=== PATIENT | female | born 1985 | race Two or more races ===

== ENCOUNTER 2016-12-08 06:05 | Day surgery (SDC) | payer OTHER ==
[2016-12-06 12:35] VITALS: BMI 26.6
--- NOTE | 2016-12-07 09:59 | HP ---
History & Physical Update - History History: No Change - Physical Physical: No Change - Assessment Assessment: No Change - Plan Plan: No Change
[2016-12-08] MEDS ORDERED: PROPOFOL 20 ML ONE (08:53)
[2016-12-08] MEDS ORDERED: MIDAZOLAM HCL 2 MG/2 ML SINGLE DOSE VIAL ONE (08:53)
[2016-12-08] MEDS ORDERED: LIDOCAINE HCL/PF 2% SDV 5ML VIAL ONE (08:55)
[2016-12-08] MEDS ORDERED: SCOPOLAMINE HYDROBROMIDE 1 PATCH PATCH.TD72 ONE (08:59)
[2016-12-08] MEDS ORDERED: ceFAZolin SODIUM 1 GM VIAL ONE (09:26)
[2016-12-08] MEDS ORDERED: ceFAZolin SODIUM 1 GM VIAL IVPB ONE (09:27)
[2016-12-08] MEDS ORDERED: KETOROLAC TROMETHAMINE 30 MG/1 ML VIAL ONE (09:54)
[2016-12-08] MEDS ORDERED: oxyCODONE HCL 5 MG TABLET PO PRN (10:13)
[2016-12-08] MEDS ORDERED: ONDANSETRON 4 MG/2 ML VIAL IVPUSH PRN (10:13)
[2016-12-08] MEDS ORDERED: LACTATED RINGERS SOLUTION 1,000 ML IV SCH (10:15)
[2016-12-08] MEDS ORDERED: ACETAMINOPHEN 325 MG TABLET (FP) PO PRN (11:19)
[2016-12-08] MEDS ORDERED: IBUPROFEN 400 MG TABLET (FP) PO PRN (11:19)
[2016-12-08 14:23] VITALS: TEMP 97.6
[2016-12-08 14:44] VITALS: BP 106/52; PULSE 76
--- NOTE | 2016-12-11 12:39 | PATH ---
Surgical Pathology Report Patient Name: KAREN LOPEZ [facility]. Rec. #: [id number] /Age/Gender: 1985 (Age: 30) / F Account: [id number] Location: [facility] SURGICAL Taken: 12/08/2016 Received: 12/08/2016 Reported: 12/11/2016 Physicians: Deja Craig M.D. Specimen(s) Received A: UTERINE CONTENTS B: UTERINE POLYPS Clinical History Menorrhagia/submucosal myoma, endometrial polyps Final Diagnosis A. UTERINE CONTENTS: POLYPOID AND NON-POLYPOID FRAGMENTS OF SECRETORY ENDOMETRIUM. FRAGMENTS OF BENIGN SMOOTH MUSCLE. B. UTERINE POLYP: POLYPOID FRAGMENTS OF SECRETORY ENDOMETRIUM. FRAGMENTS OF BENIGN SMOOTH MUSCLE. Electronically Signed Jonine Shelton M.D. Gross Description A. Received in formalin, labeled "uterine contents" is 4.5 x 4.5 x 1 cm in aggregate dimension multiple fragments of wong-red tissue admixed with blood. Submitted entirely in five cassettes. B. Received in formalin, labeled "uterine polyp" and multiple fragments of wong-pink tissue ranging from 0.5-1.2 cm in greatest dimension. Submitted entirely in one cassette. AF/12/08/2016 final/12/08/2016
--- NOTE | 2016-12-28 16:10 | OP ---
DATE OF OPERATION: 12/08/2016 PREOPERATIVE DIAGNOSIS: Submucosal myoma, endometrial polyps. POSTOPERATIVE DIAGNOSIS: Submucosal myoma, endometrial polyps. OPERATION: Hysteroscopic myomectomy and suction dilation and curettage. SURGEON: Deja Craig M.D. ANESTHESIA: General. PROCEDURE: Patient was taken to the operating room, placed in dorsal lithotomy position, prepped and draped in the usual sterile fashion. A speculum was placed in the vagina. Anterior lip of the cervix was grasped with single-tooth tenaculum. The cervix was then dilated to accommodate the operative hysteroscope. Operative hysteroscope was inserted and a large submucous myoma was noted. Cutting and cautery of the endometrial myoma and polyp was done. The specimen was then submitted to Pathology. Large amounts of tissue were removed and after cautery had been done, suction dilation and curettage was then performed. Hemostasis was achieved. All instruments were then removed. Patient tolerated the procedure well. ESTIMATED BLOOD LOSS: 20 mL. DEJA CRAIG M.D. [id number]
== END 2016-12-08 14:30 | disposition home or self-care (01) ==
LOC: JASU-SURG 06:05
PROVIDERS: ATTEND Obstetrics & Gynecology
PROC: 0UDB8ZX Extraction of Endometrium, Via Natural or Artificial Opening Endoscopic, Diagnostic (ICD-10-PCS; principal; 2016-12-08 09:00)
PROC: 0UB98ZZ Excision of Uterus, Via Natural or Artificial Opening Endoscopic (ICD-10-PCS; 2016-12-08 09:00)
DX: D25.0 Submucous leiomyoma of uterus (principal); N84.0 Polyp of corpus uteri
CPT/HCPCS: 88305-TC; 94760

== ENCOUNTER 2018-11-21 08:25 | Inpatient (IN) | payer OTHER ==
[2018-11-21] MEDS ORDERED: ONDANSETRON 4 MG/2 ML VIAL IVPUSH PRN (08:33)
[2018-11-21 09:20] VITALS: BMI 33.6
[2018-11-21] MEDS ORDERED: TUBERCULIN PPD 5 TU/0.1ML SYRINGE (IN PATIENT USE ONLY) ID ONE (09:45)
[2018-11-21] MEDS ORDERED: ELECTROLYTE-148 SOLN 1,000 ML IV SCH ×3 (09:45→10:45)
[2018-11-21] MEDS ORDERED: CITRIC ACID/SODIUM CITRATE 30 ML UNIT-DOSE CUP PO ONE (09:45)
[2018-11-21] MEDS ORDERED: OXYTOCIN 20 UNITS in 0.9% NS 20 UNIT/1,000 ML INFUS.BAG IV ONE ×2 (10:05→12:48)
[2018-11-21] MEDS ORDERED: morphine SULFATE/Preservative Free 0.5 MG/ML (1cc Syringe) ONE (10:07)
--- NOTE | 2018-11-21 10:13 | HP ---
Past Medical History - Primary Care Physician PCP:: Deja Craig - Admission Chief Complaint: Previous Section. Previous myomectomy. 38 weeks History of Present Illness: 32 yo EDC EGA 38 weeks with previous myomectomy and previous Section for repeat CS +AFM No bleeding no pain no GARZA History Source: Patient - Past Medical History ...: 3 ...Para: 1 ...Term: 1 ...: 0 ...Spon : 0 ...Induced : 1 ...Multiple Gestation: 0 ...LMP: 02/24/18 ... Weeks Gestation by Dates: 38.4 ...EDC by Dates: 12/01/18 - Past Surgical History Past Surgical History: Yes: Hx Myomectomy: Yes Hx Transabdominal Cerclage: No Additional Surgical History: myomectomy - Smoking History Smoking history: Never smoked Have you smoked in the past 12 months: No If you are a former smoker, when did you quit?: 5YRS AGO - Alcohol/Substance Use Hx Alcohol Use: No History of Substance Use: reports: None - Social History Usual Living Arrangement: Yes: With Spouse History of Recent Travel: No Home Medications - Allergies Allergies/Adverse Reactions: Allergies Allergy/AdvReac Type Severity Reaction Status Date / Time azithromycin [From Zithromax] Allergy Intermediate Rash Verified 11/21/18 14:22 - Home Medications Home Medications: Ambulatory Orders Tablet 1 tab PO DAILY 11/21/18 Review of Systems - Review of Systems Constitutional: reports: No Symptoms Eyes: reports: No Symptoms HENT: reports: No Symptoms Neck: reports: No Symptoms Cardiovascular: reports: No Symptoms Respiratory: reports: No Symptoms Gastrointestinal: reports: No Symptoms Genitourinary: reports: No Symptoms Breasts: reports: No Symptoms Reported Musculoskeletal: reports: No Symptoms Integumentary: reports: No Symptoms Neurological: reports: No Symptoms Endocrine: reports: No Symptoms Hematology/Lymphatic: reports: No Symptoms Psychiatric: reports: No Symptoms Physical Exam - Maternity Vital Signs: Vital Signs Temperature 98.0 F 11/21/18 08:25 Pulse Rate 82 11/21/18 08:25 Respiratory Rate 17 11/21/18 08:25 Blood Pressure 121/64 11/21/18 08:25 O2 Sat by Pulse Oximetry (%) Constitutional: Yes: Well Nourished, No Distress Lungs: Clear to auscultation Breast(s): Yes: WNL - Abdominal Exam/OB Fundal Height: 39 Number of Fetuses: Single Presentation: Vertex Contractions: No Category: I - Vaginal Exam/OB Vaginal Bleediing: No Speculum Exam: No Amniotic Membrane Status: Intact Presentation: Vertex/Position - Physical Exam Edema: No Psychiatric: Yes: WNL, Alert, Oriented Hemorrhage Risk Assessment - Risk Factors Risk Score: 1 Risk Level: Medium Risk Problem List - Problems (1) H/O myomectomy Code(s): Z98.890 - OTHER SPECIFIED POSTPROCEDURAL STATES (2) Previous delivery affecting , antepartum Code(s): O34.219 - MATERNAL CARE FOR UNSP TYPE SCAR FROM PREVIOUS DEL (3) 38 weeks gestation of Code(s): Z3A.38 - 38 WEEKS GESTATION OF Assessment/Plan IUP at 38 week previous Section x1 Previous myomectomy Cat 1 Plan repeat Section
[2018-11-21] MEDS ORDERED: ePHEDrine SULFATE 50 MG/1 ML AMPULE ONE (10:14)
--- NOTE | 2018-11-21 10:16 | OP ---
Operative Note - Note: Operative Date: 11/21/18 Pre-Operative Diagnosis: Previous Myomectomy. Previous Section. IUP @ 38 week Operation: Repeat Low transverse Section Findings: Live female in OA position nuchal x 1 Post-Operative Diagnosis: Same as Pre-op Surgeon: Deja Craig Story Teller: Juliann Pace Anesthesiologist/TAX STAFF ACCOUNTANT: Juliann Pace Specimens Removed: placenta Estimated Blood Loss (mls): 500 Operative Report Dictated: Yes
[2018-11-21] MEDS ORDERED: METHYLERGONOVINE MALEATE 0.2 MG/1 ML AMP IM PRN (10:17)
[2018-11-21] MEDS ORDERED: PHENYLEPHRINE HCL 10 MG/1 ML SINGLE DOSE VIAL ONE (10:17)
[2018-11-21] MEDS ORDERED: ceFAZolin SODIUM 1 GM VIAL ONE (10:18)
[2018-11-21] MEDS ORDERED: KETOROLAC TROMETHAMINE 30 MG/1 ML VIAL ONE (10:19)
[2018-11-21 11:18] LABS: VENOUS PC02 42.7 mmHg (38-52); VENOUS PH 7.37 (7.32-7.42)
[2018-11-21 11:19] LABS: VENOUS PO2 23.3 mmHg (28-48)
[2018-11-21 11:20] LABS: ARTERIAL BLOOD GAS PCO2 59.6 mmHg (35-45); ARTERIAL BLOOD GAS pH 7.26 (7.35-7.45)
[2018-11-21 11:22] LABS: ARTERIAL BLD GAS O2 SATURATION 29.7 % (90-98.9)
--- NOTE | 2018-11-21 11:45 | SURG ---
Surgery Manager Sound Note Manager Sound: Juliann Pace PA-C (Suzy) Date of Service: 11/21/18 Diagnosis: Previous Myomectomy. Previous Section. IUP @ 38 week Procedure: Repeat Low transverse Section I was present for the entirety of the operative procedure. For further detail, please refer to operative report. Visit type - Case Type Case Type: Scheduled - Emergency Emergency Visit: No - New patient This patient is new to me today: Yes Date on this admission: 11/21/18 - Critical Care Critical Care patient: No
[2018-11-21] MEDS ORDERED: ACETAMINOPHEN INJECTION 100 ML IVPB ONE (12:38)
[2018-11-21] MEDS: OXYTOCIN 20 UNITS in 0.9% NS 20 UNIT/1,000 ML INFUS.BAG IV SCH ×2 (12:58→19:32)
--- NOTE | 2018-11-21 13:03 | OP ---
DATE OF OPERATION: 11/21/2018 PREOPERATIVE DIAGNOSES: Previous myomectomy, previous section, intrauterine at 38 weeks. OPERATION: Repeat section. PREOPERATIVE DIAGNOSES: Previous myomectomy, previous section, intrauterine at 38 weeks, and live female . SURGEON: Argenis Craig MD CHIEF GUARD: COSTA Pace ANESTHESIA: Spinal. ANESTHESIOLOGIST: Jeffrey Padgett MD FINDINGS: Live female delivered in OP position. PROCEDURE: The patient was taken to the operating room, placed in supine position, prepped and draped in usual sterile fashion. A timeout was performed in accordance with hospital regulation. A Pfannenstiel skin incision was made through the patient's previous scar. Cautery was then used to go through layers of abdominal wall to the level of the fascia. Fascia was cut in the midline and cautery was then used to open the fascia in smiling fashion. Kochers were then used to bluntly and sharply dissect the rectus muscle. The fascia was split in the midline. Peritoneal cavity was then entered and carried upward and downward. Bladder retractor was then placed. Vesicouterine reflection was then entered, and bladder was bluntly dissected out of the operative field. Bladder retractor was then replaced. A scalpel was then used to make a low transverse uterine incision. The incision was carried upward using the bandage scissors. A live female was delivered in OP position. Nose and mouth suctions were performed. Shoulders were delivered without difficulty. Cord was clamped and cut. Cord blood obtained. Cord pH obtained. Cord blood sampling obtained. DeLee clamping done. Infant was hand to the acetaldehyde converter operator. Placenta was manually extracted from the uterus. The uterus was exteriorized and cleaned with clean lap pads. Uterine incision was then closed using 0 Biosyn suture, first layer continuous interlocking, second layer imbricating the first layer. Some omentum was seen attached to the uterus. Some enterolysis was done and omentum was removed. Cautery of the area was then done. INTERCEED was placed over that area. Tubes and ovaries were noted to be normal. Uterus interiorized. Abdominal cavity cleaned with clean lap pad. A peritoneal cyst was then seen and peritoneal cystectomy was then performed and submitted to Pathology. Peritoneum closed using 0 Biosyn suture in continuous stitch. Muscles approximated in midline using 0 Biosyn suture. Fascia was then closed using 0 Vicryl suture in 2 parts. Subcutaneous was then approximated using 0 Biosyn sutures in 3 parts. Skin was then closed using 3-0 Vicryl in subcuticular fashion. Wound was washed and dressed. Patient tolerated the procedure well. Estimated blood loss was 500 mL. ARGENIS CRAIG M.D. [id number]
[2018-11-21] MEDS ORDERED: ACETAMINOPHEN 1000 MG/100 ML VIAL (NON FORMULARY) IVPB ONE (13:04)
[2018-11-21] MEDS: IBUPROFEN 800 MG/8 ML IJ IVPB PRN (19:42)
[2018-11-22] MEDS: IBUPROFEN 800 MG/8 ML IJ IVPB PRN (03:21)
[2018-11-22 07:08] LABS: BASO % 0.3 % (0-2.0); EOS % 0.7 % (0-4.5); HEMATOCRIT 31.3 % (32.4-45.2); HEMOGLOBIN 10.6 GM/dL (10.7-15.3); LYMPH % 10.4 % (8-40); MCH 29.1 pg (25.7-33.7); MEAN CELL VOLUME 85.7 fl (80-96); MEAN PLT VOLUME 10.1 fl (7.5-11.1); MONO % 7.4 % (3.8-10.2); NEUT % 81.2 % (42.8-82.8); PLATELET COUNT 169 K/MM3 (134-434); RBC 3.65 M/mm3 (3.60-5.2); RDW 15.5 % (11.6-15.6); WHITE BLOOD COUNT 12.6 K/mm3 (4.0-10.0)
--- NOTE | 2018-11-22 08:53 | PN ---
Progress Note (short form) - Note Progress Note: S/P C Section under spinal anesthesia with duramorph uneventful.Patient stable and has little pain for which she is on medication.No any anesthesia related problem.Patient Dc from the anesthesia care.
--- NOTE | 2018-11-22 09:16 | PN ---
Post Progress Note - Subjective Subjective: Pt doing well, no complaints. Tolerating clears. Ambulating, voiding, pain controlled. No complaints. Type of Delivery: Repeat C/S Vital Signs: Vital Signs Temperature 98 F 11/22/18 05:00 Pulse Rate 88 11/22/18 05:00 Respiratory Rate 18 11/22/18 06:00 Blood Pressure 96/53 L 11/22/18 05:00 O2 Sat by Pulse Oximetry (%) 99 11/21/18 12:15 Uterus: Yes: Fundus Firm Incision: Yes: Dressing dry and intact Abdomen/GI: Yes: Abdomen soft Lochia, amount: Small Extremities: Yes: Calves non-tender. No: Edema Perineum: Yes: Intact Activity: Ambulating - Labs Labs: CBC WBC 12.6 K/mm3 (4.0-10.0) H 11/22/18 06:36 RBC 3.65 M/mm3 (3.60-5.2) 11/22/18 06:36 Hgb 10.6 GM/dL (10.7-15.3) L 11/22/18 06:36 Hct 31.3 % (32.4-45.2) L 11/22/18 06:36 MCV 85.7 fl (80-96) 11/22/18 06:36 MCH 29.1 pg (25.7-33.7) 11/22/18 06:36 MCHC 34.0 g/dl (32.0-36.0) 11/22/18 06:36 RDW 15.5 % (11.6-15.6) 11/22/18 06:36 Plt Count 169 K/MM3 (134-434) 11/22/18 06:36 MPV 10.1 fl (7.5-11.1) 11/22/18 06:36 Absolute Neuts (auto) 10.2 K/mm3 (1.5-8.0) H 11/22/18 06:36 Neutrophils % 81.2 % (42.8-82.8) 11/22/18 06:36 Lymphocytes % 10.4 % (8-40) D 11/22/18 06:36 Monocytes % 7.4 % (3.8-10.2) 11/22/18 06:36 Eosinophils % 0.7 % (0-4.5) 11/22/18 06:36 Basophils % 0.3 % (0-2.0) 11/22/18 06:36 Nucleated RBC % 0 % (0-0) 11/22/18 06:36 Problem List - Problems (1) delivery delivered Code(s): O82 - ENCOUNTER FOR DELIVERY WITHOUT INDICATION Assessment/Plan pod #1 s/p c section ambulation advance diet s/p void encourage ambulation
[2018-11-22] MEDS ORDERED: DIPHTH,PERTUSS(ACELL),TET 0.5 ML DISP.SYRIN IM ONE (10:00)
[2018-11-22] MEDS: oxyCODONE HCL 5 MG TABLET PO PRN ×2 (10:10→21:59)
[2018-11-22] MEDS: PRENATAL VITAMINS W/ FOLIC ACID TABLET (FP) PO SCH (10:10)
[2018-11-22] MEDS: IBUPROFEN 600 MG TABLET (FP) PO PRN ×2 (10:10→21:59)
[2018-11-22] MEDS ORDERED: BISACODYL 10 MG SUPP.RECT RC PRN (10:17)
[2018-11-22] MEDS ORDERED: oxyCODONE HCL 5 MG TABLET PO PRN (10:17)
[2018-11-22] MEDS: diphenhydrAMINE HCL 25 MG CAPSULE (FP) PO PRN ×2 (18:08→21:59)
[2018-11-22] MEDS: SIMETHICONE 80 MG TAB.CHEW (FP) PO PRN (21:59)
--- NOTE | 2018-11-23 07:08 | PN ---
Post Note - Post Date of Delivery: 11/21/18 Post Day: 2 Vital Signs: Vital Signs - 24 hr 11/22/18 11/22/18 11/22/18 08:00 09:00 10:00 Temperature 98.2 F Pulse Rate 91 H Respiratory 18 18 18 Rate Blood Pressure 93/56 L 11/22/18 21:40 Temperature 98.0 F Pulse Rate 78 Respiratory 18 Rate Blood Pressure 107/58 L Labs: Laboratory Results - last 24 hr 11/22/18 06:36 WBC 12.6 H RBC 3.65 Hgb 10.6 L Hct 31.3 L MCV 85.7 MCH 29.1 MCHC 34.0 RDW 15.5 Plt Count 169 MPV 10.1 Absolute Neuts (auto) 10.2 H Neutrophils % 81.2 Lymphocytes % 10.4 D Monocytes % 7.4 Eosinophils % 0.7 Basophils % 0.3 Nucleated RBC % 0 - Subjective Subjective: No Complaints - Objective Afebrile: Yes Breast: Not engorged Abdomen: Soft, Other (dressing removed last night incision intact no drainage) Uterus: Fundus firm Vagina: Scant lochia Extremities: Non-tender - Assessment/Plan (1) H/O myomectomy Assessment: Other (POD 2 SP CS) Plan: Routine Care
[2018-11-23] MEDS: PRENATAL VITAMINS W/ FOLIC ACID TABLET (FP) PO SCH (11:06)
[2018-11-23] MEDS: IBUPROFEN 600 MG TABLET (FP) PO PRN ×3 (11:25→21:44)
[2018-11-23] MEDS: SIMETHICONE 80 MG TAB.CHEW (FP) PO PRN ×2 (11:26→21:43)
[2018-11-23] MEDS: ACETAMINOPHEN 500 MG TABLET (FP) PO PRN ×2 (17:17→21:43)
[2018-11-24 07:38] LABS: BASO % 0.4 % (0-2.0); EOS % 3.8 % (0-4.5); HEMATOCRIT 32.1 % (32.4-45.2); HEMOGLOBIN 10.8 GM/dL (10.7-15.3); LYMPH % 20.8 % (8-40); MCH 29.1 pg (25.7-33.7); MCHC 33.7 g/dl (32.0-36.0); MEAN CELL VOLUME 86.2 fl (80-96); MEAN PLT VOLUME 9.7 fl (7.5-11.1); MONO % 6.7 % (3.8-10.2); NEUT % 68.3 % (42.8-82.8); PLATELET COUNT 175 K/MM3 (134-434); RBC 3.72 M/mm3 (3.60-5.2); RDW 15.9 % (11.6-15.6); WHITE BLOOD COUNT 7.5 K/mm3 (4.0-10.0)
--- NOTE | 2018-11-24 08:25 | DS ---
Physical Exam-OPERATIONAL TRAINER Vital Signs: Vital Signs Temperature 98.1 F 11/23/18 20:14 Pulse Rate 72 11/23/18 20:14 Respiratory Rate 0 L 11/23/18 20:14 Blood Pressure 112/52 L 11/23/18 20:14 O2 Sat by Pulse Oximetry (%) 99 11/21/18 12:15 Constitutional: Yes: Well Nourished, No Distress Cardiovascular: Yes: WNL, Regular Rate and Rhythm Respiratory: Yes: WNL Gastrointestinal: Yes: WNL, Soft ....Post : Yes: Uterus firm, Uterus non-tender Breast(s): Yes: WNL Musculoskeletal: Yes: WNL Extremities: Yes: WNL Edema: No Wound/Incision: Yes: Clean/Dry, Well Approximated Neurological: Yes: WNL, Alert, Oriented Labs: CBC, BMP 11/24/18 06:45 Delivery - Delivery Type of Anesthesia: Spinal EBL (cc): 500 Delivery, Single - Stages of Labor Date of Delivery: 11/21/18 Time of Delivery: 10:32 Time Placenta Delivered: 10:33 - Condition of Infant Site Safety Representative/Livestock Nutritionist Present: Yes Name: Rosa M Dai Gender: Female Weight: 7 lb 1 oz Total Hours ROM (Hrs/Mins): 2 minutes - 1 Minute Total Score: 9 5 Minutes Total Score: 9 - Feeding Plan Initial Plan: Elected not to breastfeed exclusively throughout hospitalization Discharge Summary Reason For Visit: REPEAT C SETION Current Active Problems 38 weeks gestation of (Acute) delivery delivered (Acute) H/O myomectomy (Acute) Previous delivery affecting , antepartum (Acute) Procedures: Principal: Repeat Section Hospital Course: Unremarkable Condition: Good - Instructions Diet, Activity, Other Instructions: Physical activity Resume your normal everyday activity as tolerated no heavy lifting or exercise until seen by your surgeon. You may walk unlimited magnus of and climb stairs. You may resume driving the car when you feel safe and comfortable behind the wheel. No sexual activity as instructed. Wound care If you have a bandage, leave it on, and keep dry for 48-72 hours. After that time discard the outer bandage. If they are tapes on the skin under the out of bandage leave them in place. They will peel off in the next 7 to 10 days. Do Not Peel them off. You may shower the day after surgery. If there are tapes present on the skin, you may shower over them. Diet There are no dietary restrictions. Eat healthy, high-fiber foods. Drink 6 to 8 glasses of liquid each day. This will assist in keeping your bowels are regular. Pain management You may take Tylenol or acetaminophen or Ibuprofen (for example, Motrin, Advil etc.) from my pain prescription medication is ordered should be taken as prescribed for moderate to severe pain. Call MD for any of the following: Severe pain not relieved by medication Fever of 101 or higher Excessive bleeding or drainage on dressing Inability to urinate Disposition: HOME - Home Medications Comprehensive Discharge Medication List: Ambulatory Orders Tablet 1 tab PO DAILY 11/21/18 Ibuprofen [Motrin -] 600 mg PO QID #28 tablet 11/24/18
[2018-11-24 09:09] VITALS: BP 110/63; PULSE 65; TEMP 98.3
[2018-11-24] MEDS: PRENATAL VITAMINS W/ FOLIC ACID TABLET (FP) PO SCH (09:56)
[2018-11-24] MEDS: ACETAMINOPHEN 500 MG TABLET (FP) PO PRN (11:29)
[2018-11-24] MEDS: SIMETHICONE 80 MG TAB.CHEW (FP) PO PRN (11:29)
[2018-11-24] MEDS: IBUPROFEN 600 MG TABLET (FP) PO PRN (11:30)
--- NOTE | 2018-12-09 14:23 | PATH ---
Surgical Pathology Report Patient Name: KAREN LOPEZ [facility]. Rec. 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 Specimen(s) Received A: PLACENTA B: PERITONEAL CYST Clinical History , 2014, History myomectomy 2014 and hysteroscopy 2016 Final Diagnosis A. PLACENTA, SECTION: 340 G THIRD TRIMESTER PLACENTA WITH TRIVASCULAR UMBILICAL CORD AND UNREMARKABLE PLACENTAL MEMBRANES. B. PERITONEAL CYST, EXCISION: BENIGN CYST CONSISTENT WITH PARATUBAL CYST. Electronically Signed Aisha Mohr M.D. Gross Description A. The specimen is received fresh labeled placenta and is a 340 gram, 15.0 x 15.0 x 2.5 cm. placenta with attached membranes and umbilical cord. The attached membranes are wong, translucent with focal opacities and insert marginally. The umbilical cord measures 13 cm. in length and averages 1.3 cm. in diameter. The cord inserts eccentrically, 2 cm. to the nearest margin. No true knots or strictures are identified. Cut surface of the umbilical cord reveals 3 vessels. The surface is colmenares-blue with minimal fibrin deposition and appropriate caliber vessels. The maternal surface is red-brown with focal defects. Sectioning reveals a No lesions are identified. Rag Sorter sections are submitted in three cassettes as follows: 1- membrane rolls and umbilical cord; 2-3- full thickness sections of placenta. B. Received in formalin labeled "cyst peritoneal," is a 1.4 x 1.2 x 0.8 cm intact, translucent cyst. The outer surface is wong and smooth. The lumen contains clear serous fluid. The inner lining is smooth. The specimen is serially sectioned and entirely submitted in one cassette. [facility]/06/[facility]
== END 2018-11-24 15:30 | disposition home or self-care (01) | DRG 788 ==
LOC: JLDR 08:25 → J3W 15:22
PROVIDERS: ADMIT Obstetrics & Gynecology; ATTEND Obstetrics & Gynecology
PROC: 10D00Z1 Extraction of Products of Conception, Low, Open Approach (ICD-10-PCS; principal; 2018-11-21)
DX: O34.211 Maternal care for low transverse scar from previous cesarean delivery (principal); O69.81X0 Labor and delivery complicated by cord around neck, without compression, not applicable or unspecified; Z3A.38 38 weeks gestation of pregnancy; Z37.0 Single live birth
CPT/HCPCS: 36415; 36600; 82803; 85025; 88304-TC; 88307-TC; 90715; J0131

== ENCOUNTER 2024-10-02 04:19 | Day surgery (SDC) | payer OTHER ==
[2024-09-30 12:22] VITALS: BMI 29.6
[2024-10-02] MEDS ORDERED: IBUPROFEN 400 MG TABLET (FP) PO PRN (08:01)
[2024-10-02] MEDS ORDERED: ACETAMINOPHEN 325 MG TABLET (FP) PO PRN (08:01)
[2024-10-02] MEDS ORDERED: oxyCODONE HCL 5 MG TABLET PO PRN (08:01)
[2024-10-02] MEDS ORDERED: MIDAZOLAM HCL 2 MG/2 ML SINGLE DOSE VIAL ONE (10:07)
[2024-10-02] MEDS ORDERED: PROPOFOL 20 ML ONE (10:07)
[2024-10-02] MEDS ORDERED: DEXAMETHASONE SOD PHOSPHATE 4 MG/1 ML VIAL ONE (10:08)
[2024-10-02] MEDS ORDERED: ONDANSETRON 4 MG/2 ML VIAL ONE ×2 (10:08→11:56)
[2024-10-02] MEDS ORDERED: SEVOFLURANE 250 ML BTL ONE (10:08)
[2024-10-02] MEDS ORDERED: ACETAMINOPHEN INJECTION 100 ML ONE (10:08)
[2024-10-02] MEDS ORDERED: LIDOCAINE HCL/PF 2% SDV 5ML VIAL ONE (10:08)
[2024-10-02] MEDS: ceFAZolin SODIUM 1 GM VIAL IVPB ONE (10:26)
[2024-10-02] MEDS ORDERED: ceFAZolin SODIUM 1 GM VIAL ONE (10:29)
[2024-10-02] MEDS ORDERED: OXYTOCIN 10 UNITS/ML VIAL ONE ×2 (10:34)
[2024-10-02] MEDS ORDERED: LACTATED RINGERS SOLUTION 1,000 ML IV SCH (11:00)
[2024-10-02] MEDS ORDERED: IBUPROFEN 800 MG/8 ML IJ IVPB ONE (11:37)
[2024-10-02] MEDS: IBUPROFEN 800 MG/8 ML IJ IVPB PRN (11:54)
[2024-10-02] MEDS: ONDANSETRON 4 MG/2 ML VIAL IVPUSH PRN (11:57)
[2024-10-02 13:52] VITALS: RESP 18
[2024-10-02 15:09] VITALS: BP 113/62; PULSE 81; TEMP 97.3
== END 2024-10-02 15:10 | disposition home or self-care (01) ==
LOC: JASU-SURG 04:19
PROVIDERS: ATTEND Obstetrics & Gynecology
PROC: 10D17ZZ Extraction of Products of Conception, Retained, Via Natural or Artificial Opening (ICD-10-PCS; principal; 2024-10-02 09:00)
DX: O02.1 Missed abortion (principal); Z3A.12 12 weeks gestation of pregnancy
CPT/HCPCS: 88305-TC; 94760; J0131

== ENCOUNTER 2024-10-04 12:48 | Emergency (ER) | payer OTHER ==
[2024-10-04 12:59] VITALS: BP 115/82; PULSE 101; RESP 16; TEMP 98.7; BMI 29.9
[2024-10-04] MEDS ORDERED: ACETAMINOPHEN INJECTION 100 ML ONE (13:49)
[2024-10-04] MEDS ORDERED: KETOROLAC TROMETHAMINE 15 MG/ML VIAL ONE (13:49)
[2024-10-04 13:54] LABS: BASO % 0.5 % (0-2.0); EOS % 0.1 % (0-4.5); HEMATOCRIT 30.6 % (32.4-45.2); HEMOGLOBIN 9.5 GM/dL (10.7-15.3); LYMPH % 7.2 % (8-40); MCH 24.7 pg (25.7-33.7); MEAN CELL VOLUME 79.5 fl (80-96); MEAN PLT VOLUME 8.7 fl (7.5-11.1); MONO % 4.7 % (3.8-10.2); NEUT % 87.5 % (42.8-82.8); PLATELET COUNT 239 10^3/uL (134-434); RBC 3.85 M/mm3 (3.60-5.2); RDW 21.2 % (11.6-15.6); WHITE BLOOD COUNT 17.1 K/mm3 (4.0-10.0)
[2024-10-04] MEDS: ACETAMINOPHEN 1000 MG/100 ML BAG IVPB ONE (13:54)
[2024-10-04] MEDS: KETOROLAC TROMETHAMINE 15 MG/ML VIAL IVPUSH ONE (13:54)
[2024-10-04] MEDS: SODIUM CHLORIDE 0.9% 500 ML INFUS.BAG IV ONE (13:57)
[2024-10-04 13:59] LABS: ADD RBC MORPHOLOGY YES
[2024-10-04 14:19] LABS: POTASSIUM 3.7 mmol/L (3.5-5.1)
[2024-10-04 14:21] LABS: ALBUMIN 3.7 g/dl (3.4-5.0); CALCIUM 8.9 mg/dL (8.5-10.1)
[2024-10-04 14:25] LABS: CREATININE 0.6 mg/dL (0.55-1.3)
[2024-10-04 14:26] LABS: BILIRUBIN,TOTAL 0.3 mg/dL (0.2-1); TOT PROT 6.6 g/dl (6.4-8.2)
[2024-10-04 14:27] LABS: ANISOCYTOSIS 2+; MACROCYTOSIS 2+; OVALOCYTE 1+
[2024-10-04 14:33] LABS: PH,URINE 5.5 (5.0-8.0); URINE APPEARANCE CLEAR; URINE BILIRUBIN NEGATIVE (NEGATIVE); URINE COLOR YELLOW; URINE GLUCOSE (UA) NEGATIVE (NEGATIVE); URINE KETONE 1+ (NEGATIVE); URINE LEUK ESTERASE NEGATIVE (NEGATIVE); URINE NITRITE NEGATIVE (NEGATIVE); URINE PROTEIN NEGATIVE (NEGATIVE); URINE UROBILINOGEN 0.2 mg/dL (0.2-1.0)
[2024-10-04 14:34] LABS: EPI CELLS 2 /uL (0-25.1); HYALINE CASTS 0 /uL (0-3.1); URINE BACTERIA 8 /uL (0-1359); URINE RBC 233 /uL (0-23.9); URINE WBC 1 /uL (0-25.8)
== END 2024-10-04 18:14 | disposition home or self-care (01) ==
LOC: JER 12:48
PROC: 3E033NZ Introduction of Analgesics, Hypnotics, Sedatives into Peripheral Vein, Percutaneous Approach (ICD-10-PCS; principal; 2024-10-04)
PROC: 3E0333Z Introduction of Anti-inflammatory into Peripheral Vein, Percutaneous Approach (ICD-10-PCS; 2024-10-04)
DX: O04.6 Delayed or excessive hemorrhage following (induced) termination of pregnancy (principal); R42 Dizziness and giddiness
CPT/HCPCS: 36415; 76830-TC; 80053; 81003; 84702; 85025; 87086; 99284-25; J0131

== ENCOUNTER 2024-10-09 03:03 | Emergency (ER) | payer OTHER ==
[2024-10-09 03:11] VITALS: BMI 29.4
[2024-10-09] MEDS ORDERED: ACETAMINOPHEN INJECTION 100 ML ONE (03:52)
[2024-10-09] MEDS: ACETAMINOPHEN 1000 MG/100 ML BAG IVPB ONE (04:00)
[2024-10-09] MEDS: LACTATED RINGERS SOLUTION 1000 ML INFUS.BAG IV ONE (04:00)
[2024-10-09 04:45] LABS: BASO % 0.2 % (0-2.0); EOS % 0.3 % (0-4.5); HEMATOCRIT 32.5 % (32.4-45.2); HEMOGLOBIN 10.3 GM/dL (10.7-15.3); LYMPH % 7.3 % (8-40); MCH 25.6 pg (25.7-33.7); MCHC 31.5 g/dl (32.0-36.0); MEAN CELL VOLUME 81.1 fl (80-96); MEAN PLT VOLUME 9.5 fl (7.5-11.1); MONO % 5.8 % (3.8-10.2); NEUT % 86.4 % (42.8-82.8); PLATELET COUNT 261 10^3/uL (134-434); RBC 4.01 M/mm3 (3.60-5.2); RDW 21.8 % (11.6-15.6)
[2024-10-09 05:21] LABS: POTASSIUM 4.5 mmol/L (3.5-5.1)
[2024-10-09 05:23] LABS: ALBUMIN 3.5 g/dl (3.4-5.0); BLOOD UREA NITROGEN 13.6 mg/dL (7-18)
[2024-10-09 05:26] LABS: CREATININE 0.6 mg/dL (0.55-1.3)
[2024-10-09 05:28] LABS: BILIRUBIN,TOTAL 0.5 mg/dL (0.2-1); TOT PROT 6.8 g/dl (6.4-8.2)
[2024-10-09 06:51] LABS: ANISOCYTOSIS 1+; MACROCYTOSIS 0
[2024-10-09 12:41] VITALS: BP 108/66; PULSE 87; RESP 16; TEMP 98.4
== END 2024-10-09 11:09 | disposition home or self-care (01) ==
LOC: JER 03:03
PROC: 3E033NZ Introduction of Analgesics, Hypnotics, Sedatives into Peripheral Vein, Percutaneous Approach (ICD-10-PCS; principal; 2024-10-09)
DX: O04.6 Delayed or excessive hemorrhage following (induced) termination of pregnancy (principal); R10.32 Left lower quadrant pain
CPT/HCPCS: 36415; 76830-TC; 80053; 84702; 85025; 99284-25; J0131